=== PATIENT | male | born 1995 | race Two or more races ===

== ENCOUNTER 2022-04-24 22:19 | Emergency (ER) | payer OTHER ==
[~2022-04-24] VITALS: Ht 175.3 cm; Wt 68.9 kg
== END 2022-04-24 23:54 | disposition home or self-care (01) ==
LOC: ER 22:19
DX: S60.221A Contusion of right hand, initial encounter (principal); Y93.59 Activity, other involving other sports and athletics played individually; Y92.9 Unspecified place or not applicable

== ENCOUNTER 2022-09-16 15:20 | Emergency (ER) | payer OTHER ==
[~2022-09-16] VITALS: Ht 172.7 cm; Wt 64.0 kg
== END 2022-09-16 20:12 | disposition left against medical advice (07) ==
LOC: ER 15:20
DX: Z53.21 Procedure and treatment not carried out due to patient leaving prior to being seen by health care provider (principal)

== ENCOUNTER → 2024-04-27 | Emergency (ER) | payer OTHER ==
[~2024-04-27] VITALS: Ht 175.3 cm; Wt 61.2 kg
[~2024-04-27] MED LIST: 0.9 % SODIUM CHLORIDE 1,000 ML IV STA; FAMOTIDINE/PF 20 MG/2 ML VIAL IV PUSH STA; FAMOTIDINE/PF 20 MG/2 ML VIAL ONE; LACTOBACILLUS ACIDOPHILUS 1 CAP CAP PO ONE; LACTOBACILLUS ACIDOPHILUS 1 CAP CAP PO STA
[2024-04-27 22:07] LABS: HEMOGLOBIN 15.5 g/dL (13-16.00); MEAN CELL VOLUME 95.6 fL (80.0-100.00); MEAN CORPUSCULAR HGB CONC 34.5 g/dl (32.0-36.0); PLATELET COUNT 304 K/uL (150-450); RED CELL DISTRIBUTION WIDTH 14.1 % (11.5-14.5)
[2024-04-27 22:25] LABS: ALBUMIN 3.4 gm/dL (3.4-5.0); BILIRUBIN TOTAL 0.27 mg/dL (0.3-1.2); CALCIUM 8.8 mg/dL (8.5-10.1); CREATININE SERUM 0.96 mg/dL (0.70-1.30); GFR 93.27; GLOBULINA 3.7 G/DL (2.4-3.5); MAGNESIUM 1.7 mg/dL (1.8-2.4); POTASSIUM 3.79 mEq/L (3.5-5.1); TOTAL PROTEIN 7.1 gm/dL (6.4-8.2)
== END | disposition home or self-care (01) ==
LOC: ER 20:49
PROVIDERS: General Practice
DX: K52.89 Other specified noninfective gastroenteritis and colitis (principal)
CPT/HCPCS: 36415; 96365; 96366; 99282; J3490; J7030

== ENCOUNTER → 2024-06-21 | Emergency (ER) | payer OTHER ==
[~2024-06-21] VITALS: Ht 175.3 cm; Wt 65.8 kg
[2024-06-21 23:57] VITALS: BP 138/88; O2SAT 97
== END | disposition left against medical advice (07) ==
LOC: ER 23:44
DX: Z53.21 Procedure and treatment not carried out due to patient leaving prior to being seen by health care provider (principal)

== ENCOUNTER 2025-02-12 23:23 | Emergency (ER) | payer OTHER ==
[~2025-02-12] VITALS: Ht 175.3 cm; Wt 66.7 kg
[2025-02-13] MEDS ORDERED: 0.9 % SODIUM CHLORIDE 1,000 ML IV ONE (00:15)
[2025-02-13] MEDS ORDERED: FAMOtidine 10 MG/ML (4ML VIAL) IV ONE (00:15)
[2025-02-13] MEDS ORDERED: KETOROLAC TROMETHAMINE 30 MG VIAL IV ONE (00:15)
[2025-02-13 00:42] LABS: BASO % 0.2 % (0.1-1.2); EOS # 0.12 (0.04-0.54); EOS % 0.7 % (0.7-7.0); LYMPH # 0.91 (1.18-3.74); LYMPH % 5.0 % (19.3-53.1); MEAN PLATELET VOLUME 8.70 fl (9.4-12.4); MONO # 2.36 (0.24-0.82); NEUT # 14.88 (1.56-6.13); NEUT % 80.9 % (34.0-71.1); RED CELL DISTRIBUTION WIDTH 14.5 % (11.6-14.4)
[2025-02-13 00:50] LABS: MONO % 12.8 % (4.7-12.5)
[2025-02-13 01:01] LABS: INR 1.04
[2025-02-13 01:22] LABS: ALT/SGPT 63.0 U/L (12-78); AST/SGOT 77.0 U/L (15-37); BILIRUBIN TOTAL 0.69 mg/dL (0.3-1.2); BUN CREA RATIO 11.0 (7.0-25.0); CREATININE SERUM 0.93 mg/dL (0.70-1.30); GFR 96.75; GLOBULINA 3.0 G/DL (2.4-3.5); GLUCOSE FASTING 125.0 mg/dL (65-100); OSMOLALITY SERUM 274.0 MOSM/KG (275-295)
[2025-02-13 01:55] LABS: URINE APPEARANCE Clear; URINE BILIRRUBIN Negative (NEGATIVE); URINE BLOOD Small; URINE COLOR Yellow; URINE GLUCOSE Negative (NEGATIVE); URINE KETONE Negative (NEGATIVE); URINE LEUKOCYTE Small; URINE NITRATE Negative; URINE PROTEIN Negative (NEGATIVE); URINE UROBILINOGEN 0.2 E.U./dl
[2025-02-13] MEDS ORDERED: LACTOBACILLUS ACIDOPHILUS 1 CAP CAP PO ONE (01:58)
[2025-02-13] MEDS ORDERED: FAMOTIDINE/PF 20 MG/2 ML VIAL ONE (01:58)
[2025-02-13] MEDS ORDERED: KETOROLAC TROMETHAMINE 30 MG VIAL ONE (01:58)
[2025-02-13 02:00] LABS: URINE BACTERIA 70.8 uL (0.0-1933); URINE WBC 20.9 uL (0.0-23.2)
[2025-02-13 02:06] LABS: URINE CAST 0.14 uL (0.0-1.40); URINE EPITHELIAL CELLS 0.6 uL (0.0-38.8); URINE RBC 1.0 uL (0.0-20.8)
[2025-02-13 02:33] LABS: COCAINE POSITIVE (NEGATIVE); METHADONE NEGATIVE (NEGATIVE); OPIATES NEGATIVE (NEGATIVE); THC ( Cannabinoids) NEGATIVE (NEGATIVE)
[2025-02-13] MEDS ORDERED: CEFTRIAXONE SODIUM 1,000 MG VIAL IV ONE (04:15)
[2025-02-13] MEDS ORDERED: LEVALBUTEROL HCL 1.25 MG/3 ML SOLUTION IH ONE ×2 (04:15→04:35)
[2025-02-13] MEDS ORDERED: CEFTRIAXONE SODIUM 1,000 MG VIAL ONE (04:41)
[2025-02-13 06:24] LABS: BASO % 0.3 % (0.1-1.2); EOS # 0.27 (0.04-0.54); EOS % 1.8 % (0.7-7.0); LYMPH # 1.44 (1.18-3.74); LYMPH % 9.5 % (19.3-53.1); MEAN PLATELET VOLUME 8.70 fl (9.4-12.4); MONO # 2.34 (0.24-0.82); NEUT # 10.96 (1.56-6.13); NEUT % 72.6 % (34.0-71.1); RED CELL DISTRIBUTION WIDTH 14.8 % (11.6-14.4)
[2025-02-13 06:38] LABS: MONO % 15.5 % (4.7-12.5)
[2025-02-13] MEDS ORDERED: PEPCID AC20 MG PO (06:53)
[2025-02-13] MEDS ORDERED: ZITHROMAX500 MG PO (06:53)
== END 2025-02-13 07:52 | disposition home or self-care (01) ==
LOC: ER 23:23
PROVIDERS: General Practice
DX: F14.10 Cocaine abuse, uncomplicated (principal); R00.0 Tachycardia, unspecified